=== PATIENT | female | born 2000 | race Caucasian/White ===

== ENCOUNTER → 2024-12-28 17:23 | Outpatient (CLI) | payer OTHER, SELFPAY ==
[2024-12-30 17:38] LABS: Urine N gonorrhoeae NOT DETECTED
[2024-12-30 18:28] LABS: Urine Chlamydia NOT DETECTED
== END ==
PROVIDERS: Visit Provider Nurse Practitioner Family
DX: Z11.3 Encounter for screening for infections with a predominantly sexual mode of transmission (principal); Z11.8 Encounter for screening for other infectious and parasitic diseases
CPT/HCPCS: 87210; 87491; 87591